=== PATIENT | female | born 1985 | race Caucasian/White ===

== ENCOUNTER 2017-10-18 09:46 | Outpatient (CLI) | payer OTHER | END 2017-10-18 17:00 | disposition home or self-care (01) | LOC: RX STUDY 09:46 | DX: E28.2 Polycystic ovarian syndrome (principal) ==

== ENCOUNTER → 2018-08-31 | Day surgery (SDC) | payer OTHER ==
[~2018-08-31] MED LIST: CRINONE1.125 GM VAG; PROGEST PO; SYNTHROID75 MCG PO
== END | disposition home or self-care (01) ==
LOC: CIR.AMB 06:00
DX: O02.1 Missed abortion (principal); Z3A.08 8 weeks gestation of pregnancy

== ENCOUNTER 2019-07-14 09:28 | Outpatient (CLI) | payer OTHER | END 2019-07-14 13:33 | disposition home or self-care (01) | LOC: NST 09:28 | DX: Z34.83 Encounter for supervision of other normal pregnancy, third trimester (principal) ==

== ENCOUNTER 2019-07-26 10:02 | Outpatient (CLI) | payer OTHER | END 2019-07-26 11:15 | disposition home or self-care (01) | LOC: NST 10:02 | DX: Z34.83 Encounter for supervision of other normal pregnancy, third trimester (principal) ==

== ENCOUNTER 2019-08-03 08:48 | Outpatient (CLI) | payer OTHER | END 2019-08-03 09:45 | disposition home or self-care (01) | LOC: NST 08:48 | PROVIDERS: ATTEND Obstetrics & Gynecology | DX: Z34.83 Encounter for supervision of other normal pregnancy, third trimester (principal) ==

== ENCOUNTER 2019-08-10 11:10 | Outpatient (CLI) | payer OTHER | END 2019-08-10 12:15 | disposition home or self-care (01) | LOC: NST 11:10 | PROVIDERS: ATTEND Obstetrics & Gynecology | DX: Z34.83 Encounter for supervision of other normal pregnancy, third trimester (principal) ==

== ENCOUNTER 2019-08-10 11:30 | Inpatient (IN) | payer OTHER ==
[~2019-08-10] VITALS: Ht 157.5 cm; Wt 106.6 kg
== END 2019-08-13 11:14 | disposition home or self-care (01) | DRG 768 ==
LOC: SURG-SUITE 08-11 06:38 → LDR 08-11 06:38 → SURG-SUITE 08-11 15:29 → OB/GYN 08-25 11:30
PROVIDERS: ADMIT Obstetrics & Gynecology; ATTEND Obstetrics & Gynecology
PROC: 10E0XZZ Delivery of Products of Conception, External Approach (ICD-10-PCS; principal; 2019-08-11)
PROC: 0DQR0ZZ Repair Anal Sphincter, Open Approach (ICD-10-PCS; 2019-08-11)
PROC: 10907ZC Drainage of Amniotic Fluid, Therapeutic from Products of Conception, Via Natural or Artificial Opening (ICD-10-PCS; 2019-08-11)
PROC: 3E033VJ Introduction of Other Hormone into Peripheral Vein, Percutaneous Approach (ICD-10-PCS; 2019-08-11)
PROC: 4A1HXCZ Monitoring of Products of Conception, Cardiac Rate, External Approach (ICD-10-PCS; 2019-08-11)
DX: O70.21 Third degree perineal laceration during delivery, IIIa (principal); Z37.0 Single live birth; Z3A.38 38 weeks gestation of pregnancy